=== PATIENT | female | born 1975 | race Caucasian/White ===

== ENCOUNTER 2016-08-31 19:19 | Emergency (ER) | payer OTHER ==
[2016-08-31] MEDS ORDERED: IOPAMIDOL 300 (61%) 100 ML VIAL IV ONE (19:20)
[2016-08-31 20:28] LABS: ALB/GLOB RATIO 1.5 (>1.0); CALCIUM 9.3 mg/dL (8.6-10.3)
[2016-08-31 20:38] LABS: SPECIFIC GRAVITY 1.015 (1.001-1.030); URINE BILIRUBIN NEGATIVE (NEGATIVE); URINE BLOOD NEGATIVE (NEGATIVE); URINE GLUCOSE (UA) NEGATIVE (NEGATIVE); URINE LEUKOCYTE ESTERASE NEGATIVE (NEGATIVE); URINE NITRITE NEGATIVE (NEGATIVE); URINE PROTEIN NEGATIVE (NEGATIVE); URINE UROBILINOGEN NORMAL (0-1 mg/dl)
[2016-08-31 20:39] LABS: ABSOLUTE NEUTROPHIL COUNT 1.8 K/mm3 (1.8-7.7); BASO % 0.4 % (0.2-1.0); EOS # 0.1 (0.0-0.5); EOS % 2.1 % (0.9-2.9); HEMATOCRIT 38.6 % (37.0-47.0); HEMOGLOBIN 13.2 gm/l (12.0-16.0); IMM NEUT% 0.2 % (0-1); LYMPH # 2.7 (1.0-4.8); LYMPH % 54.5 % (15-45); MEAN CELL VOLUME 84.1 fl (81.0-99.0); MEAN CORPUSCULAR HEMOGLOBIN 28.8 pg (27.0-31.0); MEAN CORPUSCULAR HGB CONC 34.2 g/dl (33.0-37.0); MEAN PLATELET VOLUME 10.6 fl (7.4-10.4); MONO # 0.3 (0.0-0.8); NEUT % 36.8 % (43-75); PLATELET COUNT 231 K/mm3 (130-400); RED CELL DISTRIBUTION WIDTH 11.9 % (11.5-14.5)
[2016-08-31 20:43] LABS: URINE APPEARANCE CLEAR; URINE COLOR YELLOW
[2016-08-31] MEDS ORDERED: LORAZEPAM 2 MG/ML 1ML SDV ONE (20:52)
--- NOTE | 2016-09-01 08:10 | CT ---
EXAMINATION: Contrast enhanced CT scan of the abdomen and pelvis. CLINICAL INDICATION: Left lower quadrant pain COMPARISON: None TECHNIQUE: Oral contrast: None Following uneventful administration of 100 mL of Isovue 300, intravenously axial images were acquired from just above the domes of the diaphragm to the iliac crest. A CT scan of the pelvis was also obtained from the iliac crest to the initial tuberosities. Stacked axial, sagittal, and coronal images were reviewed. Findings: Abdomen CT: (Contrast-enhanced): The lung bases are clear and are without mass or pleural effusion. The liver is unremarkable. Patient status post cholecystectomy. There is no evidence of biliary obstruction. Spleen exhibits no mass or lesion. 2 small accessory spleens are noted near the hilum. The pancreas is normal in size and contours. No inflammatory stranding is identified. The pancreatic duct is unremarkable. The adrenals are unremarkable. The kidneys are without mass or hydronephrosis. No nephrolithiasis is identified. The abdominal aorta unremarkable. There is no retroperitoneal adenopathy identified. The stomach is unremarkable. The visualized segments of small and large bowel are within normal limits. The osseous structures exhibit no displaced fracture. No lytic or blastic lesions are identified. Pelvic CT: (Contrast -enhanced): Bladder exhibits a focal calcification in the anterior superior aspect this appears to involve or closely approximates the bladder wall margin. No mass is identified. No gross bladder wall thickening is appreciated on this study. However direct visualization may be warranted. The distal ureters are unremarkable. Calcified phleboliths are also noted adjacent to the bladder. Uterus is surgically absent. There are no adnexal masses. No adenopathy is identified. The distal abdominal aorta and iliac vessels are within normal limits. The visualized segments of small and large bowel are unremarkable. No inflammatory stranding is identified adjacent to the cecum. No displaced fractures are identified. There are no gross osteolytic or blastic lesions. The overlying soft tissues are unremarkable. IMPRESSION: 1. No evidence of acute inflammatory or obstructive process involving the abdomen and pelvis. 2. Prior cholecystectomy and hysterectomy changes. 3. Calcific lesions closely approximating the bladder wall. These may involve the bladder itself. Calcific phleboliths may give a similar appearance. If warranted, direct visualization/cystoscopy may be helpful. No gross mass is identified. Findings were communicated by [facility] to the emergency department at: 2151 hours 08/31/2016
== END 2016-08-31 22:26 | disposition home or self-care (01) ==
LOC: ED 19:19
DX: R10.32 Left lower quadrant pain (principal); K58.9 Irritable bowel syndrome, unspecified; N83.209 Unspecified ovarian cyst, unspecified side; N80.9 Endometriosis, unspecified; F12.90 Cannabis use, unspecified, uncomplicated
CPT/HCPCS: 83690; 85025; 80053; 81003; 74177; 99284 ×2; 96374; J2060; Q9967